=== PATIENT | female | born 1995 | race Native Hawaiian/Other Pacific Islander ===

== ENCOUNTER 2020-11-01 16:16 | Emergency (ER) | payer OTHER ==
[2020-11-01 16:22] VITALS: TEMP 98.5
[2020-11-01] MEDS ORDERED: methylPREDNISolone SOD SUCCI 125 MG/2 ML VIAL IV STA (16:34)
[2020-11-01] MEDS ORDERED: IPRATROPIUM-ALBUTEROL 3 ML NEB INHALATION STA (16:35)
--- NOTE | 2020-11-01 17:16 | XR ---
EXAMINATION TYPE: XR chest 2V DATE OF EXAM: 11/01/2020 COMPARISON: NONE HISTORY: Shortness of breath. TECHNIQUE: Frontal and lateral views of the chest are obtained. FINDINGS: There is no focal air space opacity, pleural effusion, or pneumothorax seen. The cardiac silhouette size is within normal limits. The osseous structures are intact. IMPRESSION: No acute cardiopulmonary process.
[2020-11-01 17:18] VITALS: PULSE 98
--- NOTE | 2020-11-01 17:47 | ED ---
General Adult HPI - General Chief complaint: Shortness of Breath Stated complaint: MIKI Time Seen by Provider: 11/01/20 16:30 Source: patient, RN notes reviewed Mode of arrival: wheelchair Limitations: no limitations - History of Present Illness Initial comments: 25-year-old female presents emergency from chief shortness breath. Patient states over the last few days her asthma has been bothering her. She's been using her inhalers with minimal relief. Patient states she does have an updraft machine at home. She is not seeing a center rep recently. No fevers or chills. Patient states she believes is related to her new job she states that she has been having a lot of nasal congestion, irritation from this. Patient states she is exposed to chemicals. Patient denies any difficulty swallowing difficulty ambulate in. Patient offers no complaints. - Related Data Home Medications Medication Instructions Recorded Confirmed 78/Iron/Folate 1/Dha 1 each PO DAILY 08/09/16 08/09/16 [Prenate Dha Softgel] Previous Rx's Medication Instructions Recorded Albuterol Inhaler (Mhu) [Ventolin 2 puff INHALATION Q4HR PRN #1 12/09/15 Hfa Inhaler (Mhu)] inhaler Acetaminophen-Codeine 300-30mg 2 tab PO Q6H PRN #30 tablet 08/13/16 [Tylenol #3] Ipratropium-Albuterol Nebulize 3 ml INHALATION QID #2 box 11/01/20 [Duoneb 0.5 mg-3 mg/3 ml Soln] predniSONE 50 mg PO DAILY #5 tab 11/01/20 Allergies Allergy/AdvReac Type Severity Reaction Status Date / Time No Known Allergies Allergy Verified 11/01/20 16:22 Review of Systems ROS Statement: Those systems with pertinent positive or pertinent negative responses have been documented in the HPI. ROS Other: All systems not noted in ROS Statement are negative. Past Medical History Past Medical History: Asthma History of Any Multi-Drug Resistant Organisms: None Reported Additional Past Surgical History / Comment(s): skull surgery as infant Past Anesthesia/Blood Transfusion Reactions: No Reported Reaction Past Psychological History: No Psychological Hx Reported Smoking Status: Never smoker Past Alcohol Use History: None Reported Past Drug Use History: None Reported - Past Family History Father Family Medical History: Diabetes Mellitus General Exam Limitations: no limitations General appearance: alert, in no apparent distress Head exam: Present: atraumatic, normocephalic, normal inspection Eye exam: Present: normal appearance, PERRL, EOMI. Absent: scleral icterus, conjunctival injection, periorbital swelling ENT exam: Present: normal exam, normal oropharynx, mucous membranes moist Neck exam: Present: normal inspection. Absent: tenderness, meningismus, lymphadenopathy Respiratory exam: Present: respiratory distress (Minimal), wheezes. Absent: normal lung sounds bilaterally, rales, rhonchi, stridor Cardiovascular Exam: Present: normal rhythm, tachycardia, normal heart sounds. Absent: systolic murmur, diastolic murmur, rubs, gallop, clicks Course Vital Signs 11/01/20 11/01/20 11/01/20 16:19 16:58 17:17 Temperature 98.5 F Pulse Rate 112 H 96 98 Respiratory 26 H Rate Blood Pressure 113/61 O2 Sat by Pulse 97 Oximetry - Reevaluation(s) Reevaluation #1: 11/01/20 17:46 Patient updated on results reevaluated after breathing treatment patient's greatly improved states that she does not have current shortness of breath 11/01/20 17:46 Medical Decision Making - Lab Data Lab Results 11/01/20 Range/Units 16:34 Coronavirus (PCR) Not Detected (Not Detectd) Disposition Clinical Impression: Acute asthma exacerbation Disposition: HOME SELF-CARE Condition: Stable Instructions (If sedation given, give patient instructions): Asthma (ED) Additional Instructions: Please return to the Emergency Department if symptoms worsen or any other concerns. Prescriptions: Ipratropium-Albuterol Nebulize [Duoneb 0.5 mg-3 mg/3 ml Soln] 3 ml INHALATION QID #2 box predniSONE 50 mg PO DAILY #5 tab Is patient prescribed a controlled substance at d/c from ED?: No Referrals: None,Stated [Primary Care Provider] - 1-2 days Time of Disposition: 17:47
[2020-11-01 17:51] VITALS: BP 123/79; RESP 18
== END 2020-11-01 17:52 | disposition home or self-care (01) ==
LOC: EC 16:16
DX: J45.901 Unspecified asthma with (acute) exacerbation (principal)
CPT/HCPCS: 94640; 87635; 71046; 99285; 96374; J2930

== ENCOUNTER 2022-03-12 17:22 | Emergency (ER) | payer OTHER ==
[2022-03-12 17:44] VITALS: BP 113/73; PULSE 101; RESP 18; TEMP 99
[2022-03-12] MEDS ORDERED: SODIUM CHLORIDE 0.9% 1,000 ML IV STA (18:10)
[2022-03-12] MEDS ORDERED: KETOROLAC 15 MG/ML 1 ML VIAL IVP STA (18:10)
[2022-03-12] MEDS ORDERED: diphenhydrAMINE 50 MG/ML 1 ML VIAL IVP STA (18:10)
--- NOTE | 2022-03-12 18:24 | ED ---
Abdominal Pain HPI - General Chief Complaint: Abdominal Pain Stated Complaint: Abd Pain Time Seen by Provider: 03/12/22 17:45 Source: patient, RN notes reviewed Mode of arrival: ambulatory Limitations: no limitations - History of Present Illness Initial Comments: This is a 26-year-old female who presents to the emergency department for abdominal pain that has been present for 2 days. She describes this as being in the bilateral lower quadrants and pelvis. The RLQ and left lower pelvis are the most painful areas. States that the pain fluctuates in intensity. She has had intermittent nausea but no vomiting. She is scheduled to start her period in 2 weeks, and is unsure if this may be related to menstrual cramping. However, she has never had problems with cramping in relation to her menstrual cycles before. States that this pain is new and unlike anything she has experienced prior. Denies any vaginal discharge or new sexual partners. Denies any fevers, chills, sore throat, cough, dyspnea, chest pain, palpitations, vomiting, diarrhea, back pain, or headaches. MD Complaint: abdominal pain Onset/Timin -: days(s) Location: RLQ, suprapubic - Related Data Home Medications Medication Instructions Recorded Confirmed 78/Iron/Folate 1/Dha 1 each PO DAILY 08/09/16 08/09/16 [Prenate Dha Softgel] Previous Rx's Medication Instructions Recorded Albuterol Inhaler (Mhu) [Ventolin 2 puff INHALATION Q4HR PRN #1 12/09/15 Hfa Inhaler (Mhu)] inhaler Acetaminophen-Codeine 300-30mg 2 tab PO Q6H PRN #30 tablet 08/13/16 [Tylenol #3] Ipratropium-Albuterol Nebulize 3 ml INHALATION Q4HR #2 box 11/01/20 [Duoneb 0.5 mg-3 mg/3 ml Soln] Ipratropium-Albuterol Nebulize 3 ml INHALATION QID #2 box 11/01/20 [Duoneb 0.5 mg-3 mg/3 ml Soln] predniSONE 50 mg PO DAILY #5 tab 11/01/20 predniSONE 50 mg PO DAILY #5 tab 11/01/20 Diclofenac Sodium [Voltaren] 75 mg PO BID PRN #20 tab 03/12/22 HYDROcodone/APAP 5-325MG [[place] 1 tab PO Q4HR PRN 3 Days #18 tab 03/12/22 5-325] Ondansetron Odt [Zofran Odt] 4 mg PO Q8HR PRN #15 tab 03/12/22 Allergies Allergy/AdvReac Type Severity Reaction Status Date / Time No Known Allergies Allergy Verified 11/01/20 16:22 Review of Systems ROS Statement: Those systems with pertinent positive or pertinent negative responses have been documented in the HPI. ROS Other: All systems not noted in ROS Statement are negative. Past Medical History Past Medical History: Asthma History of Any Multi-Drug Resistant Organisms: None Reported Additional Past Surgical History / Comment(s): skull surgery as Past Anesthesia/Blood Transfusion Reactions: No Reported Reaction Past Psychological History: No Psychological Hx Reported Smoking Status: Never smoker Past Alcohol Use History: None Reported Past Drug Use History: None Reported - Past Family History Father Family Medical History: Diabetes Mellitus General Exam Limitations: no limitations General appearance: alert, in no apparent distress Head exam: Present: atraumatic, normocephalic, normal inspection Respiratory exam: Present: normal lung sounds bilaterally. Absent: respiratory distress, wheezes, rales, rhonchi, stridor Cardiovascular Exam: Present: regular rate, normal rhythm, normal heart sounds. Absent: systolic murmur, diastolic murmur, rubs, gallop, clicks GI/Abdominal exam: Present: soft, tenderness (RLQ and left suprapubic), normal bowel sounds. Absent: distended, guarding, rebound, rigid Expanded GI/Abdominal exam: Present: tenderness at McBurney's Point (Mild). Absent: psoas sign, obturator sign, Bautista's sign, Rovsing's sign Neurological exam: Present: alert, oriented X3, CN II-XII intact Psychiatric exam: Present: normal affect, normal mood Skin exam: Present: warm, dry, intact, normal color. Absent: rash Course Vital Signs 03/12/22 17:41 Temperature 99.0 F Pulse Rate 101 H Respiratory 18 Rate Blood Pressure 113/73 O2 Sat by Pulse 99 Oximetry Medical Decision Making - Medical Decision Making This is a 26 year old female who presents to the emergency department for abdominal and pelvic pain. Lab work and UA were nonactionable. Patient noted to have a temperature of 99 degrees F on examination, this was rechecked approximately 1.5 hours later and had further elevated to a temperature of 99.4 degrees F. Given the acute abdominal pain with nausea and elevated temperature, CT of the abd/pelvis was obtained. She was given Toradol, Benadryl, and IV fluids for symptoms. CT of the abdomen and pelvis did not reveal any abnormalities and the Toradol and Benadryl did not improve her symptoms. 2mg of morphine provided and ESR/CRP ordered. We discussed that this may be related to mittelschmerz pain, or could be related to an ovarian process or infection such as pelvic inflammatory disease. She denies any vaginal discharge or bleeding and she has no new sexual partners, all of which would lead to more of a concern for PID. We discussed the possibility of proceeding with an ultrasound for further evaluation of the reproductive system, and the patient opted to proceed with ultrasound, saying she wants to have a further evaluation of her symptoms. Ultrasound revealed no acute abnormalities to explain her symptoms. ESR and CRP were also not elevated. Patient advised that her symptoms are likely related to mittelschmerz pain. Rx for [place], Diclofenac, and Zofran sent to the pharmacy. She is advised to avoid any other antiinflammatories when taking the Diclofenac and to use the [place] at night until she knows how it effects her. Starter packs were provided in the emergency department because the pharmacies were closed at the point of the patient's discharge. Return precautions reviewed in depth, the patient is instructed to return to the emergency department with any new, worsening, or concerning symptoms. Patient verbalized understanding. This case was discussed in detail with the attending ED physician. Presentation, findings, and treatment plan discussed in detail as well. - Lab Data Result diagrams: 03/12/22 18:45 03/12/22 18:45 Lab Results 03/12/22 03/12/22 03/12/22 Range/Units 18:45 18:45 18:45 WBC 10.3 (3.8-10.6) k/uL RBC 4.45 (3.80-5.40) m/uL Hgb 13.8 (11.4-16.0) gm/dL Hct 42.3 (34.0-46.0) % MCV 95.0 (80.0-100.0) fL MCH 31.1 (25.0-35.0) pg MCHC 32.7 (31.0-37.0) g/dL RDW 12.1 (11.5-15.5) % Plt Count 173 (150-450) k/uL MPV 8.3 Neutrophils % 87 % Lymphocytes % 6 % Monocytes % 4 % Eosinophils % 2 % Basophils % 1 % Neutrophils # 8.9 H (1.3-7.7) k/uL Lymphocytes # 0.6 L (1.0-4.8) k/uL Monocytes # 0.4 (0-1.0) k/uL Eosinophils # 0.2 (0-0.7) k/uL Basophils # 0.1 (0-0.2) k/uL Sodium 137 (137-145) mmol/L Potassium 4.0 (3.5-5.1) mmol/L Chloride 104 (98-107) mmol/L Carbon Dioxide 24 (22-30) mmol/L Anion Gap 9 mmol/L BUN 17 (7-17) mg/dL Creatinine 0.68 (0.52-1.04) mg/dL Est GFR (CKD-EPI)AfAm >90 (>60 ml/min/1.73 sqM) Est GFR (CKD-EPI)NonAf >90 (>60 ml/min/1.73 sqM) Glucose 120 H (74-99) mg/dL Calcium 9.0 (8.4-10.2) mg/dL Total Bilirubin 1.0 (0.2-1.3) mg/dL AST 22 (14-36) U/L ALT 22 (4-34) U/L Alkaline Phosphatase 56 (38-126) U/L C-Reactive Protein (<1.0) mg/dL Total Protein 7.7 (6.3-8.2) g/dL Albumin 4.5 (3.5-5.0) g/dL Amylase 98 (30-110) U/L Lipase 79 (23-300) U/L Urine Color Yellow Urine Appearance Clear (Clear) Urine pH 5.5 (5.0-8.0) Ur Specific [place] 1.022 (1.001-1.035) Urine Protein Negative (Negative) Urine Glucose (UA) Negative (Negative) Urine Ketones Negative (Negative) Urine Blood Negative (Negative) Urine Nitrite Negative (Negative) Urine Bilirubin Negative (Negative) Urine Urobilinogen <2.0 (<2.0) mg/dL Ur Leukocyte Esterase Negative (Negative) Urine HCG, Qual (Not Detectd) Coronavirus (PCR) (Not Detectd) Influenza Type A RNA (Not Detectd) Influenza Type B (PCR) (Not Detectd) 03/12/22 03/12/22 03/12/22 Range/Units 18:45 18:45 19:09 WBC (3.8-10.6) k/uL RBC (3.80-5.40) m/uL Hgb (11.4-16.0) gm/dL Hct (34.0-46.0) % MCV (80.0-100.0) fL MCH (25.0-35.0) pg MCHC (31.0-37.0) g/dL RDW (11.5-15.5) % Plt Count (150-450) k/uL MPV Neutrophils % % Lymphocytes % % Monocytes % % Eosinophils % % Basophils % % Neutrophils # (1.3-7.7) k/uL Lymphocytes # (1.0-4.8) k/uL Monocytes # (0-1.0) k/uL Eosinophils # (0-0.7) k/uL Basophils # (0-0.2) k/uL Sodium (137-145) mmol/L Potassium (3.5-5.1) mmol/L Chloride (98-107) mmol/L Carbon Dioxide (22-30) mmol/L Anion Gap mmol/L BUN (7-17) mg/dL Creatinine (0.52-1.04) mg/dL Est GFR (CKD-EPI)AfAm (>60 ml/min/1.73 sqM) Est GFR (CKD-EPI)NonAf (>60 ml/min/1.73 sqM) Glucose (74-99) mg/dL Calcium (8.4-10.2) mg/dL Total Bilirubin (0.2-1.3) mg/dL AST (14-36) U/L ALT (4-34) U/L Alkaline Phosphatase (38-126) U/L C-Reactive Protein 0.8 (<1.0) mg/dL Total Protein (6.3-8.2) g/dL Albumin (3.5-5.0) g/dL Amylase (30-110) U/L Lipase (23-300) U/L Urine Color Urine Appearance (Clear) Urine pH (5.0-8.0) Ur Specific [place] (1.001-1.035) Urine Protein (Negative) Urine Glucose (UA) (Negative) Urine Ketones (Negative) Urine Blood (Negative) Urine Nitrite (Negative) Urine Bilirubin (Negative) Urine Urobilinogen (<2.0) mg/dL Ur Leukocyte Esterase (Negative) Urine HCG, Qual Not Detected (Not Detectd) Coronavirus (PCR) (Not Detectd) Influenza Type A RNA Not Detected (Not Detectd) Influenza Type B (PCR) Not Detected (Not Detectd) 03/12/22 Range/Units 19:09 WBC (3.8-10.6) k/uL RBC (3.80-5.40) m/uL Hgb (11.4-16.0) gm/dL Hct (34.0-46.0) % MCV (80.0-100.0) fL MCH (25.0-35.0) pg MCHC (31.0-37.0) g/dL RDW (11.5-15.5) % Plt Count (150-450) k/uL MPV Neutrophils % % Lymphocytes % % Monocytes % % Eosinophils % % Basophils % % Neutrophils # (1.3-7.7) k/uL Lymphocytes # (1.0-4.8) k/uL Monocytes # (0-1.0) k/uL Eosinophils # (0-0.7) k/uL Basophils # (0-0.2) k/uL Sodium (137-145) mmol/L Potassium (3.5-5.1) mmol/L Chloride (98-107) mmol/L Carbon Dioxide (22-30) mmol/L Anion Gap mmol/L BUN (7-17) mg/dL Creatinine (0.52-1.04) mg/dL Est GFR (CKD-EPI)AfAm (>60 ml/min/1.73 sqM) Est GFR (CKD-EPI)NonAf (>60 ml/min/1.73 sqM) Glucose (74-99) mg/dL Calcium (8.4-10.2) mg/dL Total Bilirubin (0.2-1.3) mg/dL AST (14-36) U/L ALT (4-34) U/L Alkaline Phosphatase (38-126) U/L C-Reactive Protein (<1.0) mg/dL Total Protein (6.3-8.2) g/dL Albumin (3.5-5.0) g/dL Amylase (30-110) U/L Lipase (23-300) U/L Urine Color Urine Appearance (Clear) Urine pH (5.0-8.0) Ur Specific [place] (1.001-1.035) Urine Protein (Negative) Urine Glucose (UA) (Negative) Urine Ketones (Negative) Urine Blood (Negative) Urine Nitrite (Negative) Urine Bilirubin (Negative) Urine Urobilinogen (<2.0) mg/dL Ur Leukocyte Esterase (Negative) Urine HCG, Qual (Not Detectd) Coronavirus (PCR) Not Detected (Not Detectd) Influenza Type A RNA (Not Detectd) Influenza Type B (PCR) (Not Detectd) - Radiology Data Radiology results: report reviewed, image reviewed Disposition Clinical Impression: Lana Disposition: HOME SELF-CARE Instructions (If sedation given, give patient instructions): Lana (ED), Acute Abdominal Pain (ED) Additional Instructions: Return to the emergency department with any new, worsening, or concerning symptoms. Do not take the Diclofenac witih any other antiinflammatories. Take the [place] at night until you know how it effects you. Take the Zofran as needed for nausea. Apply heat to the abdomen. Follow up with your primary care provider in 1-2 days. Prescriptions: HYDROcodone/APAP 5-325MG [[place] 5-325] 1 tab PO Q4HR PRN 3 Days #18 tab PRN Reason: Pain Diclofenac Sodium [Voltaren] 75 mg PO BID PRN #20 tab PRN Reason: Pain Ondansetron Odt [Zofran Odt] 4 mg PO Q8HR PRN #15 tab PRN Reason: Nausea And Vomiting Is patient prescribed a controlled substance at d/c from ED?: Yes When asked, does pt state using other controlled substances?: No If prescribed controlled substance>3 days was MAPS reviewed?: Prescribed <3 Days Referrals: None,Stated [Primary Care Provider] - 1-2 days
[2022-03-12 18:52] LABS: Appearance,Urine Clear (Clear); Basophils # (A) 0.1 k/uL (0-0.2); Basophils % (A) 1 %; Bilirubin,Urine Negative (Negative); Blood,Urine Negative (Negative); Color,Urine Yellow; Eosinophils # (A) 0.2 k/uL (0-0.7); Eosinophils % (A) 2 %; Glucose,Urine (UA) Negative (Negative); HCT 42.3 % (34.0-46.0); HGB 13.8 gm/dL (11.4-16.0); Ketones,Urine Negative (Negative); Leukocyte Esterase,Urine Negative (Negative); Lymphocytes # (A) 0.6 k/uL (1.0-4.8); Lymphocytes % (A) 6 %; MCH 31.1 pg (25.0-35.0); MCHC 32.7 g/dL (31.0-37.0); Mean Platelet Volume 8.3; Monocytes # (A) 0.4 k/uL (0-1.0); Monocytes % (A) 4 %; Neutrophils # (A) 8.9 k/uL (1.3-7.7); Neutrophils % (A) 87 %; Nitrite,Urine Negative (Negative); PH, Urine 5.5 (5.0-8.0); Platelet Count 173 k/uL (150-450); Protein,Urine Negative (Negative); RBC 4.45 m/uL (3.80-5.40); RDW 12.1 % (11.5-15.5); Specific Gravity,Urine 1.022 (1.001-1.035); Urobilinogen,Urine <2.0 mg/dL (<2.0); WBC 10.3 k/uL (3.8-10.6)
[2022-03-12 19:03] LABS: ALT 22 U/L (4-34); AST 22 U/L (14-36); African American GFR (CKD) >90 (>60 ml/min/1.73 sqM); Albumin 4.5 g/dL (3.5-5.0); Alkaline Phosphatase 56 U/L (38-126); Amylase 98 U/L (30-110); Anion Gap 9 mmol/L; Blood Urea Nitrogen 17 mg/dL (7-17); Carbon Dioxide 24 mmol/L (22-30); Chloride 104 mmol/L (98-107); Glucose 120 mg/dL (74-99); Lipase 79 U/L (23-300); Non-African American GFR(CKD) >90 (>60 ml/min/1.73 sqM); Sodium 137 mmol/L (137-145); Total Protein 7.7 g/dL (6.3-8.2)
--- NOTE | 2022-03-12 19:44 | CT ---
EXAMINATION TYPE: CT abdomen pelvis w con DATE OF EXAM: 03/12/2022 COMPARISON: None HISTORY: RLQ pain, fever, nausea CT DLP: 1176.9 mGycm Automated exposure control for dose reduction was used. CONTRAST: Performed with IV Contrast, patient injected with 100 mL of Isovue 300. Images obtained from the diaphragm to the floor the pelvis with IV contrast. Lung bases are clear. No pleural effusion. Heart size is normal. No pericardial effusion. Liver splee n and stomach gallbladder appear normal. There is no pancreatic mass. There is no adrenal mass. Kidneys have normal size. There is no hydronephrosis. Ureters are not dilat ed. There is no retroperitoneal adenopathy. The bladder distends smoothly. There is no inguinal hernia. Uterus is anteverted. No pelvic mass. No free fluid in the pelvis. Delay ed images show normal renal excretion. There is no mesenteric edema. No ascites or free air. No bowel obstruction. Appendix is posterior and appears normal. The lumbar vertebrae have normal alignment. Posterior elements are intact. No compression fracture. B erendira pelvis is intact. The hip joints are intact. IMPRESSION: Negative CT scan of the abdomen and pelvis. Normal appendix.
[2022-03-12] MEDS ORDERED: MORPHINE SULFATE 2 MG/ML SYRINGE IVP STA (20:24)
--- NOTE | 2022-03-12 21:06 | US ---
EXAMINATION TYPE: US transvaginal DATE OF EXAM: 03/12/2022 COMPARISON: Same day CT CLINICAL HISTORY: pelvic pain. Pt states generalized pain TECHNIQUE: Transvaginal (TV). Transvaginal sonographic images of the pelvis were acquired. Date of LMP: 02/09/2022 EXAM MEASUREMENTS: Uterus: 10.0 x 4.1 x 5.1 cm Endometrial Stripe: 0.9 cm Right Ovary: 3.1 x 2.6 x 3.4 cm Left Ovary: 3.1 x 2.0 x 2.9 cm 1. Uterus: Anteverted Heterogeneous, Nabothian cyst in cervix 2. Endometrium: wnl 3. Right Ovary: wnl 4. Left Ovary: wnl Spectral, color and waveform doppler imaging shows good arterial and venous flow within the ovaries ; there is no evidence for ovarian torsion. 5. Bilateral Adnexa: wnl 6. Posterior cul-de-sac: Scant amount of free fluid IMPRESSION: Tiny amount of free fluid is likely physiologic. No adnexal mass. Normal uterus. No sign of ovarian torsion.
[2022-03-12] MEDS ORDERED: IBUPROFEN 600 MG STARTER PACK 4 TAB BTL PO STA (21:52)
[2022-03-12] MEDS ORDERED: ACET/COD 300 MG/30 MG STARTER PACK 6 TAB BTL PO STA (21:52)
[2022-03-12] MEDS ORDERED: ONDANSETRON 4 MG ODT STARTER PACK 2 TAB BTL PO STA (21:52)
== END 2022-03-12 22:26 | disposition home or self-care (01) ==
LOC: EC 17:22
DX: N94.0 Mittelschmerz (principal); J45.909 Unspecified asthma, uncomplicated; Z20.822 Contact with and (suspected) exposure to COVID-19
CPT/HCPCS: 36415; 80053; 85652; 82150; 83690; 85025; 86140; 81003; 81025; 87502; 87635; 93975; 76830; 74177; 99284; 96374; 96375; 96361; J1200; J2270; J1885; S0119; Q9967

== ENCOUNTER 2022-05-02 18:54 | Emergency (ER) | payer OTHER ==
[2022-05-02 19:55] VITALS: TEMP 98.3
[2022-05-02 20:26] LABS: Appearance,Urine Cloudy (Clear); Bacteria,Urine Rare /hpf; Bilirubin,Urine Negative (Negative); Blood,Urine Negative (Negative); Color,Urine Yellow; Glucose,Urine (UA) Negative (Negative); Ketones,Urine Negative (Negative); Leukocyte Esterase,Urine Small (Negative); Mucus,Urine Few /hpf; Nitrite,Urine Negative (Negative); PH, Urine 5.5 (5.0-8.0); Protein,Urine Trace (Negative); RBC,Urine 1 /hpf (0-5); Squamous Epithelial Cell,Urine 10 /hpf (0-4); Urobilinogen,Urine <2.0 mg/dL (<2.0); WBC,Urine 3 /hpf (0-5)
[2022-05-02] MEDS ORDERED: SODIUM CHLORIDE 0.9% 1,000 ML IV STA (20:33)
--- NOTE | 2022-05-02 20:55 | ED ---
Abdominal Pain HPI - General Chief Complaint: Abdominal Pain Stated Complaint: abd pain Time Seen by Provider: 05/02/22 20:26 Source: patient, RN notes reviewed Mode of arrival: ambulatory Limitations: no limitations - History of Present Illness Initial Comments: This is a 27-year-old female who presents to the emergency department for abdominal pain. States that the abdominal pain has been ongoing issue for several months, however it has gotten worse over the last several days. Also has associated back pain. She is but is unsure how far along she is. She does have her first obstetrics appointment next month with Dr. Craig. Denies any nausea or vomiting. Denies any fevers, chills, sore throat, cough, dyspnea, chest pain, palpitations, nausea, vomiting, diarrhea, or headaches. MD Complaint: abdominal pain Onset/Timin -: week(s) Associated Symptoms: other (back pain) - Related Data Home Medications Medication Instructions Recorded Confirmed 78/Iron/Folate 1/Dha 1 each PO DAILY 08/09/16 08/09/16 [Prenate Dha Softgel] Previous Rx's Medication Instructions Recorded Albuterol Inhaler [Ventolin Hfa 2 puff INHALATION Q4HR PRN #1 12/09/15 Inhaler] inhaler Acetaminophen-Codeine 300-30mg 2 tab PO Q6H PRN #30 tablet 08/13/16 [Tylenol #3] Ipratropium-Albuterol Nebulize 3 ml INHALATION Q4HR #2 box 11/01/20 [Duoneb 0.5 mg-3 mg/3 ml Soln] Ipratropium-Albuterol Nebulize 3 ml INHALATION QID #2 box 11/01/20 [Duoneb 0.5 mg-3 mg/3 ml Soln] predniSONE 50 mg PO DAILY #5 tab 11/01/20 predniSONE 50 mg PO DAILY #5 tab 11/01/20 Diclofenac Sodium [Voltaren] 75 mg PO BID PRN #20 tab 03/13/22 HYDROcodone/APAP 5-325MG [Eva 1 tab PO Q4HR PRN 3 Days #18 tab 03/13/22 5-325] Ondansetron Odt [Zofran Odt] 4 mg PO Q8HR PRN #15 tab 03/13/22 Cephalexin [Keflex] 500 mg PO Q8HR 3 Days #9 cap 07/18/22 Allergies Allergy/AdvReac Type Severity Reaction Status Date / Time No Known Allergies Allergy Verified 05/02/22 19:55 Review of Systems ROS Statement: Those systems with pertinent positive or pertinent negative responses have been documented in the HPI. ROS Other: All systems not noted in ROS Statement are negative. Past Medical History Past Medical History: Asthma History of Any Multi-Drug Resistant Organisms: None Reported Additional Past Surgical History / Comment(s): skull surgery as infant Past Anesthesia/Blood Transfusion Reactions: No Reported Reaction Past Psychological History: No Psychological Hx Reported Smoking Status: Never smoker Past Alcohol Use History: None Reported Past Drug Use History: None Reported - Past Family History Father Family Medical History: Diabetes Mellitus General Exam Limitations: no limitations General appearance: alert, in no apparent distress Head exam: Present: atraumatic, normocephalic, normal inspection Respiratory exam: Present: normal lung sounds bilaterally. Absent: respiratory distress, wheezes, rales, rhonchi, stridor Cardiovascular Exam: Present: regular rate, normal rhythm, normal heart sounds. Absent: systolic murmur, diastolic murmur, rubs, gallop, clicks GI/Abdominal exam: Present: normal bowel sounds Neurological exam: Present: alert, oriented X3, CN II-XII intact Psychiatric exam: Present: normal affect, normal mood Skin exam: Present: warm, dry, intact, normal color. Absent: rash Course Vital Signs 05/02/22 05/02/22 19:51 23:08 Temperature 98.3 F Pulse Rate 74 80 Respiratory 22 18 Rate Blood Pressure 121/69 128/78 O2 Sat by Pulse 100 98 Oximetry Medical Decision Making - Medical Decision Making This is a 27-year-old female who presents to the emergency department for abdominal pain and lower back pain. Lab work was nonactionable. Ultrasound reveals a single live intrauterine at approximately 6 weeks. Urinalysis reveals an asymptomatic bacteriuria. Rx for Keflex provided. Discussed with the patient that we are unable to determine a cause for her abdominal pain at this time. Because this has been going on for many months, long before the , advised she follow up with gastroenterology for further evaluation. Follow-up for Dr. Sheriff listed on her discharge form. Advise she only take Tylenol for pain. She will follow up with obstetrics as scheduled next month. Return precautions reviewed in depth, the patient is instructed to return to the emergency department with any new, worsening, or concerning symptoms. Patient verbalized understanding. This case was discussed in detail with the attending ED physician. Presentation, findings, and treatment plan discussed in detail as well. - Lab Data Result diagrams: 05/02/22 21:20 05/02/22 21:20 Lab Results 05/02/22 05/02/22 05/02/22 Range/Units 20:05 20:05 21:20 WBC 6.3 (3.8-10.6) k/uL RBC 3.80 (3.80-5.40) m/uL Hgb 12.6 (11.4-16.0) gm/dL Hct 36.0 (34.0-46.0) % MCV 95.0 (80.0-100.0) fL MCH 33.1 (25.0-35.0) pg MCHC 34.9 (31.0-37.0) g/dL RDW 13.3 (11.5-15.5) % Plt Count 198 (150-450) k/uL MPV 8.1 Neutrophils % 56 % Lymphocytes % 29 % Monocytes % 6 % Eosinophils % 5 % Basophils % 1 % Neutrophils # 3.5 (1.3-7.7) k/uL Lymphocytes # 1.8 (1.0-4.8) k/uL Monocytes # 0.4 (0-1.0) k/uL Eosinophils # 0.3 (0-0.7) k/uL Basophils # 0.1 (0-0.2) k/uL Sodium (137-145) mmol/L Potassium (3.5-5.1) mmol/L Chloride (98-107) mmol/L Carbon Dioxide (22-30) mmol/L Anion Gap mmol/L BUN (7-17) mg/dL Creatinine (0.52-1.04) mg/dL Est GFR (CKD-EPI)AfAm (>60 ml/min/1.73 sqM) Est GFR (CKD-EPI)NonAf (>60 ml/min/1.73 sqM) Glucose (74-99) mg/dL Calcium (8.4-10.2) mg/dL Total Bilirubin (0.2-1.3) mg/dL AST (14-36) U/L ALT (4-34) U/L Alkaline Phosphatase (38-126) U/L Total Protein (6.3-8.2) g/dL Albumin (3.5-5.0) g/dL Amylase (30-110) U/L Lipase (23-300) U/L HCG, Quant mIU/mL Urine Color Yellow Urine Appearance Cloudy H (Clear) Urine pH 5.5 (5.0-8.0) Ur Specific [place] 1.030 (1.001-1.035) Urine Protein Trace H (Negative) Urine Glucose (UA) Negative (Negative) Urine Ketones Negative (Negative) Urine Blood Negative (Negative) Urine Nitrite Negative (Negative) Urine Bilirubin Negative (Negative) Urine Urobilinogen <2.0 (<2.0) mg/dL Ur Leukocyte Esterase Small H (Negative) Urine RBC 1 (0-5) /hpf Urine WBC 3 (0-5) /hpf Ur Squamous Epith Cells 10 H (0-4) /hpf Urine Bacteria Rare H (None) /hpf Urine Mucus Few H (None) /hpf Urine HCG, Qual Detected (Not Detectd) 05/02/22 Range/Units 21:20 WBC (3.8-10.6) k/uL RBC (3.80-5.40) m/uL Hgb (11.4-16.0) gm/dL Hct (34.0-46.0) % MCV (80.0-100.0) fL MCH (25.0-35.0) pg MCHC (31.0-37.0) g/dL RDW (11.5-15.5) % Plt Count (150-450) k/uL MPV Neutrophils % % Lymphocytes % % Monocytes % % Eosinophils % % Basophils % % Neutrophils # (1.3-7.7) k/uL Lymphocytes # (1.0-4.8) k/uL Monocytes # (0-1.0) k/uL Eosinophils # (0-0.7) k/uL Basophils # (0-0.2) k/uL Sodium 135 L (137-145) mmol/L Potassium 3.7 (3.5-5.1) mmol/L Chloride 104 (98-107) mmol/L Carbon Dioxide 24 (22-30) mmol/L Anion Gap 7 mmol/L BUN 15 (7-17) mg/dL Creatinine 0.59 (0.52-1.04) mg/dL Est GFR (CKD-EPI)AfAm >90 (>60 ml/min/1.73 sqM) Est GFR (CKD-EPI)NonAf >90 (>60 ml/min/1.73 sqM) Glucose 97 (74-99) mg/dL Calcium 9.1 (8.4-10.2) mg/dL Total Bilirubin 0.4 (0.2-1.3) mg/dL AST 18 (14-36) U/L ALT 13 (4-34) U/L Alkaline Phosphatase 54 (38-126) U/L Total Protein 6.6 (6.3-8.2) g/dL Albumin 3.9 (3.5-5.0) g/dL Amylase 69 (30-110) U/L Lipase 94 (23-300) U/L HCG, Quant 48027.7 mIU/mL Urine Color Urine Appearance (Clear) Urine pH (5.0-8.0) Ur Specific [place] (1.001-1.035) Urine Protein (Negative) Urine Glucose (UA) (Negative) Urine Ketones (Negative) Urine Blood (Negative) Urine Nitrite (Negative) Urine Bilirubin (Negative) Urine Urobilinogen (<2.0) mg/dL Ur Leukocyte Esterase (Negative) Urine RBC (0-5) /hpf Urine WBC (0-5) /hpf Ur Squamous Epith Cells (0-4) /hpf Urine Bacteria (None) /hpf Urine Mucus (None) /hpf Urine HCG, Qual (Not Detectd) - Radiology Data Radiology results: report reviewed, image reviewed Disposition Clinical Impression: Lower abdominal pain Disposition: HOME SELF-CARE Instructions (If sedation given, give patient instructions): Abdominal Pain in (ED) Additional Instructions: Return to the emergency department with any new, worsening, or concerning symptoms. Take the Keflex as prescribed for 3 days. Take Tylenol for the pain and follow-up with obstetrics as scheduled. Contact Dr. Sheriff's office for further evaluation of abdominal pain. Prescriptions: Cephalexin [Keflex] 500 mg PO Q8HR 3 Days #9 cap Is patient prescribed a controlled substance at d/c from ED?: No Referrals: None,Stated [Primary Care Provider] - 1-2 days Lottie Sheriff MD [STAFF PHYSICIAN] - 1-2 days
[2022-05-02 21:33] LABS: Basophils # (A) 0.1 k/uL (0-0.2); Basophils % (A) 1 %; Eosinophils # (A) 0.3 k/uL (0-0.7); Eosinophils % (A) 5 %; HGB 12.6 gm/dL (11.4-16.0); Lymphocytes # (A) 1.8 k/uL (1.0-4.8); Lymphocytes % (A) 29 %; MCH 33.1 pg (25.0-35.0); MCHC 34.9 g/dL (31.0-37.0); Mean Platelet Volume 8.1; Monocytes # (A) 0.4 k/uL (0-1.0); Monocytes % (A) 6 %; Neutrophils # (A) 3.5 k/uL (1.3-7.7); Neutrophils % (A) 56 %; Platelet Count 198 k/uL (150-450); RDW 13.3 % (11.5-15.5); WBC 6.3 k/uL (3.8-10.6)
[2022-05-02 22:02] LABS: ALT 13 U/L (4-34); AST 18 U/L (14-36); African American GFR (CKD) >90 (>60 ml/min/1.73 sqM); Albumin 3.9 g/dL (3.5-5.0); Alkaline Phosphatase 54 U/L (38-126); Amylase 69 U/L (30-110); Anion Gap 7 mmol/L; Blood Urea Nitrogen 15 mg/dL (7-17); Calcium 9.1 mg/dL (8.4-10.2); Carbon Dioxide 24 mmol/L (22-30); Chloride 104 mmol/L (98-107); Glucose 97 mg/dL (74-99); Lipase 94 U/L (23-300); Non-African American GFR(CKD) >90 (>60 ml/min/1.73 sqM); Potassium 3.7 mmol/L (3.5-5.1); Sodium 135 mmol/L (137-145); Total Bilirubin 0.4 mg/dL (0.2-1.3); Total Protein 6.6 g/dL (6.3-8.2)
--- NOTE | 2022-05-02 22:13 | US ---
EXAMINATION TYPE: Transabdominal DATE OF EXAM: 05/02/2022 10:00 PM COMPARISON: NONE CLINICAL HISTORY: Lower abdominal pain in . Pelvic pain x 3 days EXAM PERFORMED: Transabdominal (TA) EXAM MEASUREMENTS: GESTATIONAL AGE / DATING Physician Established: Not yet established Dates by LMP: (6 weeks/2 days) EDC: 12/24/2022 Dates by First Scan: No previous this is first scan Dates by Current Scan for: ( 6 weeks/3 days) EDC: 12/23/2022 MATERNAL ANATOMY Uterus: 9.8 x 4.9 x 7.4cm Right Ovary: 3.3 x 1.8 x 2.1cm Left Ovary: 3.4 x 2.1 x 2.4cm Post CDS / Adnexa: wnl Presence of free fluid: no Presence of corpus luteal cyst: not seen Presence of subchorionic bleed: no GESTATION / SURVEY CRL: 0.6cm (6 weeks/3 days) Yolk Sac (normal less than 6mm): not seen Heart Rate: 115 bpm Rhythm: Normal IUP: Viable IUP Date of LMP: 03/19/2022 Beta HcG (if available): Not available at time of exam IMPRESSION: The ultrasound gestational age of 6 weeks and 3 days. No complicating process seen.
[2022-05-02 22:51] LABS: HCG,Quantitative Serum 32729.7 mIU/mL
[2022-05-02 23:09] VITALS: BP 128/78; PULSE 80; RESP 18
== END 2022-05-02 23:47 | disposition home or self-care (01) ==
LOC: EC 18:54
DX: R10.30 Lower abdominal pain, unspecified (principal)
CPT/HCPCS: 36415; 76801; 80053; 81001; 81025; 82150; 83690; 84702; 85025; 96360; 96361; 99284

== ENCOUNTER → 2022-11-01 | Outpatient (CLI) | payer OTHER ==
[2022-11-01 15:51] LABS: Basophils % (A) 0 %; Eosinophils # (A) 0.1 k/uL (0-0.7); Eosinophils % (A) 3 %; HCT 42.4 % (34.0-46.0); HGB 14.3 gm/dL (11.4-16.0); Lymphocytes # (A) 0.9 k/uL (1.0-4.8); Lymphocytes % (A) 18 %; MCH 31.3 pg (25.0-35.0); MCHC 33.7 g/dL (31.0-37.0); MCV 92.9 fL (80.0-100.0); Mean Platelet Volume 8.1; Monocytes # (A) 0.4 k/uL (0-1.0); Monocytes % (A) 8 %; Neutrophils # (A) 3.5 k/uL (1.3-7.7); Neutrophils % (A) 68 %; Platelet Count 194 k/uL (150-450); RBC 4.56 m/uL (3.80-5.40); RDW 12.9 % (11.5-15.5); WBC 5.1 k/uL (3.8-10.6)
[2022-11-01 16:45] LABS: Total Eosinophil Count 132 #EOS/uL (150-300)
[2022-11-03 07:21] LABS: Aspergillus fumagatus IgE 0.44 kU/L; Cat Epith & Dander IgE >100.00 kU/L; Cladosporian herbarum IgE <0.10 kU/L; Cockroach IgE <0.10 kU/L; Elm IgE 0.17 kU/L; Maple (Box Elder) IgE 1.19 kU/L; Oak IgE 0.44 kU/L; Red Top (Bentgrass) IgE <0.10 kU/L
== END | disposition home or self-care (01) ==
LOC: LABWHC1 13:47
PROVIDERS: ATTEND Internal Medicine
DX: J45.909 Unspecified asthma, uncomplicated (principal)
CPT/HCPCS: 36415; 82785; 85008; 85025; 86003

== ENCOUNTER 2023-08-18 10:52 | Emergency (ER) | payer OTHER ==
[2023-08-18 11:04] VITALS: TEMP 99
[2023-08-18 11:35] LABS: Basophils # (A) 0.1 k/uL (0-0.2); Basophils % (A) 1 %; Eosinophils # (A) 0.1 k/uL (0-0.7); Eosinophils % (A) 2 %; HCT 39.5 % (34.0-46.0); HGB 13.7 gm/dL (11.4-16.0); Lymphocytes # (A) 1.8 k/uL (1.0-4.8); Lymphocytes % (A) 26 %; MCH 32.3 pg (25.0-35.0); MCHC 34.8 g/dL (31.0-37.0); MCV 92.9 fL (80.0-100.0); Monocytes # (A) 0.3 k/uL (0-1.0); Monocytes % (A) 4 %; Neutrophils # (A) 4.5 k/uL (1.3-7.7); Neutrophils % (A) 66 %; Platelet Count 235 k/uL (150-450); RBC 4.25 m/uL (3.80-5.40); RDW 12.2 % (11.5-15.5); WBC 6.9 k/uL (3.8-10.6)
[2023-08-18 12:01] LABS: ALT 26 U/L (4-34); AST 24 U/L (14-36); African American GFR (CKD) >90 (>60 ml/min/1.73 sqM); Albumin 4.3 g/dL (3.5-5.0); Alkaline Phosphatase 65 U/L (38-126); Anion Gap 11 mmol/L; Blood Urea Nitrogen 17 mg/dL (7-17); Calcium 9.7 mg/dL (8.4-10.2); Carbon Dioxide 25 mmol/L (22-30); Chloride 105 mmol/L (98-107); Glucose 110 mg/dL (74-99); Non-African American GFR(CKD) >90 (>60 ml/min/1.73 sqM); Potassium 3.9 mmol/L (3.5-5.1); Sodium 141 mmol/L (137-145); Total Bilirubin 0.4 mg/dL (0.2-1.3); Total Protein 7.4 g/dL (6.3-8.2)
[2023-08-18 12:37] VITALS: RESP 18
[2023-08-18 12:38] LABS: Appearance,Urine Cloudy (Clear); Bacteria,Urine Rare /hpf; Bilirubin,Urine Negative (Negative); Blood,Urine Large (Negative); Color,Urine Light Yellow; Glucose,Urine (UA) Negative (Negative); Ketones,Urine Negative (Negative); Leukocyte Esterase,Urine Small (Negative); Mucus,Urine Rare /hpf; Nitrite,Urine Negative (Negative); Protein,Urine Negative (Negative); RBC,Urine 2 /hpf (0-5); Specific Gravity,Urine 1.023 (1.001-1.035); Squamous Epithelial Cell,Urine 20 /hpf (0-4); Urobilinogen,Urine <2.0 mg/dL (<2.0); WBC,Urine 9 /hpf (0-5)
--- NOTE | 2023-08-18 12:57 | ED ---
Female Urogenital HPI - General Chief complaint: Vaginal Bleeding Stated complaint: vaginal bleeding 10 wks preg Time Seen by Provider: 08/18/23 11:07 Source: patient, RN notes reviewed Mode of arrival: ambulatory Limitations: no limitations - History of Present Illness Initial comments: This is a 28-year-old female who presents to the emergency department for vaginal bleeding in . Patient is approximately 10-11 weeks and . Reports ongoing vaginal bleeding for about a month, ever since she was evaluated here on 07/18. States that she is now passing clots and having increasing pain. She is still not yet established with an [employer]. Denies any nausea or vomiting. She does take Tylenol as needed for symptomatic management. MD Complaint: vaginal bleeding - Related Data Home Medications Medication Instructions Recorded Confirmed 78/Iron/Folate 1/Dha 1 each PO DAILY 08/09/16 08/09/16 [Prenate Dha Softgel] Previous Rx's Medication Instructions Recorded Albuterol Inhaler [Ventolin Hfa 2 puff INHALATION Q4HR PRN #1 12/09/15 Inhaler] inhaler Acetaminophen-Codeine 300-30mg 2 tab PO Q6H PRN #30 tablet 08/13/16 [Tylenol #3] Ipratropium-Albuterol Nebulize 3 ml INHALATION Q4HR #2 box 11/01/20 [Duoneb 0.5 mg-3 mg/3 ml Soln] Ipratropium-Albuterol Nebulize 3 ml INHALATION QID #2 box 11/01/20 [Duoneb 0.5 mg-3 mg/3 ml Soln] predniSONE 50 mg PO DAILY #5 tab 11/01/20 predniSONE 50 mg PO DAILY #5 tab 11/01/20 Diclofenac Sodium [Voltaren] 75 mg PO BID PRN #20 tab 03/13/22 HYDROcodone/APAP 5-325MG [Ham[place] 1 tab PO Q4HR PRN 3 Days #18 tab 03/13/22 5-325] Ondansetron Odt [Zofran Odt] 4 mg PO Q8HR PRN #15 tab 03/13/22 Cephalexin [Keflex] 500 mg PO Q8HR 3 Days #9 cap 05/02/22 Allergies Allergy/AdvReac Type Severity Reaction Status Date / Time No Known Allergies Allergy Verified 11/03/23 11:03 Review of Systems ROS Statement: Those systems with pertinent positive or pertinent negative responses have been documented in the HPI. ROS Other: All systems not noted in ROS Statement are negative. Past Medical History Past Medical History: Asthma History of Any Multi-Drug Resistant Organisms: None Reported Additional Past Surgical History / Comment(s): skull surgery as Past Anesthesia/Blood Transfusion Reactions: No Reported Reaction Past Psychological History: No Psychological Hx Reported Smoking Status: Never smoker Past Alcohol Use History: None Reported Past Drug Use History: None Reported - Past Family History Father Family Medical History: Diabetes Mellitus General Exam Limitations: no limitations General appearance: alert, in no apparent distress Head exam: Present: atraumatic, normocephalic, normal inspection Respiratory exam: Present: normal lung sounds bilaterally. Absent: respiratory distress, wheezes, rales, rhonchi, stridor Cardiovascular Exam: Present: regular rate, normal rhythm, normal heart sounds. Absent: systolic murmur, diastolic murmur, rubs, gallop, clicks Neurological exam: Present: alert, oriented X3, CN II-XII intact Psychiatric exam: Present: normal affect, normal mood Skin exam: Present: warm, dry, intact, normal color. Absent: rash Course Vital Signs 08/18/23 08/18/23 08/18/23 11:01 11:30 12:00 Temperature 99 F Pulse Rate 96 Respiratory 20 18 18 Rate Blood Pressure 131/88 110/70 117/91 O2 Sat by Pulse 97 95 97 Oximetry 08/18/23 13:53 Temperature Pulse Rate 83 Respiratory 18 Rate Blood Pressure 99/73 O2 Sat by Pulse 99 Oximetry Medical Decision Making - Medical Decision Making This is a 28-year-old female who presents to the emergency department for vaginal bleeding in . Was pt. sent in by a medical professional or institution? @ -No Did you speak to anyone other than the patient for history? @ -No Did you review nursing and triage notes? @ -Yes, and I agree, it is accurate with regards to the patient's symptoms. Were old charts reviewed? @ -No Differential Diagnosis? @ -Differential Vaginal Bleeding: Spontaneous , threatened , molar , ectopic , incompetent cervix, placenta previa, uterine rupture, dysfunctional uterine bleeding, hemorrhage, uterine fibroids, malignancy, coagulopathy, PID, cervicitis, adenomyosis, vaginal trauma, this is not meant to be an all- inclusive list. EKG interpreted by me (3pts min.)? @ -Not obtained X-rays interpreted by me (1pt min.)? @ -Not obtained CT interpreted by me (1pt min.)? @ -Not obtained U/S interpreted by me (1pt. min.)? @ -Not interpreted by me What testing was considered but not performed? (CT, X-rays, U/S, labs)? Why? @ -None What meds were considered but not given? Why? @ -None Did you discuss the management of the patient with other professionals? @ -No Did you reconcile home meds? @ -No Was smoking cessation discussed for >3mins.? @ -No Was critical care preformed (if so, how long)? @ -No Were there social determinants of health that impacted care today? How? (H omelessness, low income, unemployed, alcoholism, drug addiction, transportation, low edu. Level, literacy, decrease access to med. care, correction, rehab)? @ -No Was there de-escalation of care discussed even if they declined? (Discuss DNR or withdrawal of care, Hospice)? @ -No What co-morbidities impacted this encounter? (DM, HTN, Smoking, COPD, CAD, Cancer, CVA, Hep., AIDS, mental health diagnosis, sleep apnea, morbid obesity)? @ - Was patient admitted / discharged? @ -Discharged. Beta hCG decreased from 43126.6 on 07/18 to 26 today. No IUP was visualized on US, and US from 07/18 did demonstrate a single live IUP, indicating a miscarriage. This appears to be incomplete at this time. Patient is Rh+, and no RhoGAM is indicated. Lab slip given to have beta hCG repeated, she is advised to take this to the lab to have her hCG level repeated in 48 hours. Recommended Tylenol as needed for pain relief. Undiagnosed new problem with uncertain prognosis? @ -None Drug Therapy requiring intensive monitoring for toxicity (Heparin, Nitro, Insulin, Cardizem)? @ -None Were any procedures done? @ -None Diagnosis/symptom? @ -Incomplete Acute, or Chronic, or Acute on Chronic? @ -Acute Uncomplicated (without systemic symptoms) or Complicated (systemic symptoms)? @ -Uncomplicated Side effects of treatment? @ -None Exacerbation, Progression, or Severe Exacerbation] @ -Not applicable Poses a threat to life or bodily function? @ -Unlikely Return precautions reviewed in depth, the patient is instructed to return to the emergency department with any new, worsening, or concerning symptoms. Patient verbalized understanding. This case was discussed in detail with the attending ED physician, Dr. Olivarez. Presentation, findings, and treatment plan discussed in detail as well. - Lab Data Result diagrams: 08/18/23 11:08/18/23 11: Lab Results 08/18/23 08/18/23 08/18/23 Range/Units 11: 11: 11: WBC 6.9 (3.8-10.6) k/uL RBC 4.25 (3.80-5.40) m/uL Hgb 13.7 (11.4-16.0) gm/dL Hct 39.5 (34.0-46.0) % MCV 92.9 (80.0-100.0) fL MCH 32.3 (25.0-35.0) pg MCHC 34.8 (31.0-37.0) g/dL RDW 12.2 (11.5-15.5) % Plt Count 235 (150-450) k/uL MPV 8.0 Neutrophils % 66 % Lymphocytes % 26 % Monocytes % 4 % Eosinophils % 2 % Basophils % 1 % Neutrophils # 4.5 (1.3-7.7) k/uL Lymphocytes # 1.8 (1.0-4.8) k/uL Monocytes # 0.3 (0-1.0) k/uL Eosinophils # 0.1 (0-0.7) k/uL Basophils # 0.1 (0-0.2) k/uL Sodium 141 (137-145) mmol/L Potassium 3.9 (3.5-5.1) mmol/L Chloride 105 (98-107) mmol/L Carbon Dioxide 25 (22-30) mmol/L Anion Gap 11 mmol/L BUN 17 (7-17) mg/dL Creatinine 0.73 (0.52-1.04) mg/dL Est GFR (CKD-EPI)AfAm >90 (>60 ml/min/1.73 sqM) Est GFR (CKD-EPI)NonAf >90 (>60 ml/min/1.73 sqM) Glucose 110 H (74-99) mg/dL Calcium 9.7 (8.4-10.2) mg/dL Total Bilirubin 0.4 (0.2-1.3) mg/dL AST 24 (14-36) U/L ALT 26 (4-34) U/L Alkaline Phosphatase 65 (38-126) U/L Total Protein 7.4 (6.3-8.2) g/dL Albumin 4.3 (3.5-5.0) g/dL HCG, Quant 26.0 mIU/mL Urine Color Urine Appearance (Clear) Urine pH (5.0-8.0) Ur Specific [place] (1.001-1.035) Urine Protein (Negative) Urine Glucose (UA) (Negative) Urine Ketones (Negative) Urine Blood (Negative) Urine Nitrite (Negative) Urine Bilirubin (Negative) Urine Urobilinogen (<2.0) mg/dL Ur Leukocyte Esterase (Negative) Urine RBC (0-5) /hpf Urine WBC (0-5) /hpf Ur Squamous Epith Cells (0-4) /hpf Urine Bacteria (None) /hpf Urine Mucus (None) /hpf Blood Type O Positive Blood Type Recheck O Pos Bld Type Recheck Status No 08/18/23 Range/Units 11:42 WBC (3.8-10.6) k/uL RBC (3.80-5.40) m/uL Hgb (11.4-16.0) gm/dL Hct (34.0-46.0) % MCV (80.0-100.0) fL MCH (25.0-35.0) pg MCHC (31.0-37.0) g/dL RDW (11.5-15.5) % Plt Count (150-450) k/uL MPV Neutrophils % % Lymphocytes % % Monocytes % % Eosinophils % % Basophils % % Neutrophils # (1.3-7.7) k/uL Lymphocytes # (1.0-4.8) k/uL Monocytes # (0-1.0) k/uL Eosinophils # (0-0.7) k/uL Basophils # (0-0.2) k/uL Sodium (137-145) mmol/L Potassium (3.5-5.1) mmol/L Chloride (98-107) mmol/L Carbon Dioxide (22-30) mmol/L Anion Gap mmol/L BUN (7-17) mg/dL Creatinine (0.52-1.04) mg/dL Est GFR (CKD-EPI)AfAm (>60 ml/min/1.73 sqM) Est GFR (CKD-EPI)NonAf (>60 ml/min/1.73 sqM) Glucose (74-99) mg/dL Calcium (8.4-10.2) mg/dL Total Bilirubin (0.2-1.3) mg/dL AST (14-36) U/L ALT (4-34) U/L Alkaline Phosphatase (38-126) U/L Total Protein (6.3-8.2) g/dL Albumin (3.5-5.0) g/dL HCG, Quant mIU/mL Urine Color Light Yellow Urine Appearance Cloudy H (Clear) Urine pH 5.0 (5.0-8.0) Ur Specific [place] 1.023 (1.001-1.035) Urine Protein Negative (Negative) Urine Glucose (UA) Negative (Negative) Urine Ketones Negative (Negative) Urine Blood Large H (Negative) Urine Nitrite Negative (Negative) Urine Bilirubin Negative (Negative) Urine Urobilinogen <2.0 (<2.0) mg/dL Ur Leukocyte Esterase Small H (Negative) Urine RBC 2 (0-5) /hpf Urine WBC 9 H (0-5) /hpf Ur Squamous Epith Cells 20 H (0-4) /hpf Urine Bacteria Rare H (None) /hpf Urine Mucus Rare H (None) /hpf Blood Type Blood Type Recheck Bld Type Recheck Status - Radiology Data Radiology results: report reviewed, image reviewed Disposition Clinical Impression: Incomplete Disposition: HOME SELF-CARE Instructions (If sedation given, give patient instructions): Miscarriage (ED) Additional Instructions: Return to the emergency department with any new, worsening, or concerning symptoms. Take the lab slip to have your beta hCG repeated on Monday. Continue to take Tylenol as needed for pain relief. Follow up with your primary care provider in 1-2 days. Is patient prescribed a controlled substance at d/c from ED?: No Referrals: Payam Noble MD [Primary Care Provider] - 1-2 days
--- NOTE | 2023-08-18 13:38 | US ---
EXAMINATION TYPE: Transabdominal DATE OF EXAM: 08/18/2023 12:30 PM COMPARISON: US 2022 CLINICAL INDICATION: Female, 28 years old with history of Vaginal bleeding in ; Bleeding x 1 month that has gotten worse recently EXAM PERFORMED: Transabdominal (TA) EXAM MEASUREMENTS: GESTATIONAL AGE / DATING Physician Established: Not yet established Dates by LMP: (12 weeks/4 days) EDC: 02/27/2023 Dates by First Scan: (12 weeks/4 days) EDC: 02/28/2024 Dates by Current Scan for: No IUP seen at this time MATERNAL ANATOMY Uterus: 8.5 x 4.1 x 5.5cm Right Ovary: 3.0 x 1.7 x 2.5cm Left Ovary: 3.2 x 2.1 x 2.5cm Post CDS / Adnexa: wnl Presence of free fluid: no Presence of corpus luteal cyst: no Presence of subchorionic bleed: no GESTATION / SURVEY IUP: No IUP seen at this time Date of LMP: 05/24/2023 Beta HcG (if available): 26.0 IMPRESSION: No intrauterine identified. Differential diagnosis would include a normal too ear ly to detect, missed , although ectopic not entirely excluded. Recommend correlatio n with serial beta hCG and pelvic ultrasound as clinically warranted.
[2023-08-18 14:08] VITALS: BP 99/73; PULSE 83
== END 2023-08-18 13:59 | disposition home or self-care (01) ==
LOC: EC 10:52
DX: O03.4 Incomplete spontaneous abortion without complication (principal)
CPT/HCPCS: 36415; 76801; 80053; 81001; 84702; 85025; 86900; 86901; 99284

== ENCOUNTER → 2025-01-04 | Outpatient (CLI) | payer OTHER ==
--- NOTE | 2025-01-04 10:26 | MR ---
EXAMINATION TYPE: MR brain wo con DATE OF EXAM: 01/04/2025 COMPARISON: NONE HISTORY: Headaches worsening. TECHNIQUE: Multiplanar, multisequence imaging of the brain and brainstem is performed without IV cont rast. FINDINGS: Suboptimal with artifact degradation at level of the mouth. Diffusion weighted images demonstrate no evidence of a recent infarct or other diffusion abnormality. There is no extraaxial fluid collection or significant white matter signal abnormality. The ventricu lar system and cisternal spaces are normal in size and appearance. The brain volume is age appropria te. No suspicious intraparenchymal blood products. Midline structures demonstrate normal morphology. The craniocervical junction appears within normal limits. Normal vascular flow voids are present. Suboptimal evaluation of the paranasal sinuses and gl obes. IMPRESSION: Suboptimal study particularly anterior aspect. No obvious suspicious abnormality is seen. [facility], , 01/04/2025 10:23 AM
== END | disposition home or self-care (01) ==
LOC: RADMRIMAIN 09:25
PROVIDERS: ATTEND Family Medicine
DX: R51.9 Headache, unspecified (principal)
CPT/HCPCS: 70551

== ENCOUNTER 2025-01-30 10:07 | Day surgery (SDC) | payer OTHER ==
[2025-01-30 10:28] VITALS: TEMP 96.9
[2025-01-30] MEDS: ONDANSETRON 4 MG/2 ML VIAL IVP ONE (10:59)
[2025-01-30] MEDS: LACTATED RINGERS 1,000 ML IV SCH (10:59)
[2025-01-30] MEDS: DEXAMETHASONE SOD PHOSPHATE 4 MG/ML 1 ML VIAL IV ONE (10:59)
[2025-01-30] MEDS: IV FLUID CONTINUATION 1,000 ML IV ONE (11:04)
[2025-01-30] MEDS: MIDAZOLAM 2 MG/2 ML VIAL IV ONE (11:09)
[2025-01-30] MEDS: fentaNYL (PF) 50 MCG/ML 2 ML AMP IVP PRN (11:10)
[2025-01-30] MEDS: SCOPOLAMINE 1 MG/72 HR PATCH TRANSDERM STA (11:22)
[2025-01-30] MEDS: HEPARIN SODIUM,PORCINE 5,000 UNIT/ML 1 ML VIAL SQ PRN (11:22)
[2025-01-30] MEDS ORDERED: NEOSTIGMINE 1 MG/ML 10 ML VIAL ONE (11:25)
[2025-01-30] MEDS ORDERED: LIDOCAINE 1% INJ 10MG/ML (20 ML MDV) ONE (11:25)
[2025-01-30] MEDS ORDERED: ROPIVACAINE 5 MG/ML 30 ML VIAL ONE (11:25)
[2025-01-30] MEDS ORDERED: ROCURONIUM 10 MG/ML (5 ML VIAL) IV ONE (11:25)
[2025-01-30] MEDS ORDERED: GLYCOPYRROLATE 0.2 MG/ML 2 ML VIAL ONE (11:25)
[2025-01-30] MEDS ORDERED: SUCCINYLCHOLINE CHLORIDE 200 MG/10 ML VIAL IV ONE (11:25)
[2025-01-30] MEDS ORDERED: SODIUM CHLORIDE 0.9% (PF) 10 ML VIAL ONE (11:25)
[2025-01-30] MEDS ORDERED: fentaNYL (PF) 50 MCG/ML 2 ML AMP ONE (11:25)
[2025-01-30] MEDS ORDERED: DEXAMETHASONE SOD PHOSPHATE 4 MG/ML 1 ML VIAL ONE (11:25)
[2025-01-30] MEDS ORDERED: PROPOFOL 10 MG/ML 20 ML VIAL IV ONE (11:25)
[2025-01-30] MEDS: ceFAZolin 2 GM in DEXTROSE 5% IN WATER 50 ML IVPB PRN (11:28)
[2025-01-30] MEDS: LIDOCAINE 1%-EPI 1:100,000 20 ML VIAL SQ ONE ×2 (11:45)
--- NOTE | 2025-01-30 11:55 | P.ANPRN ---
Procedure Note - Anesthesia - Nerve Block Performed Bilateral Erector Spinae Single Time Out Performed: Yes (1109) Date of Procedure: 01/30/25 Procedure Start Time: 11:10 Procedure Stop Time: 11:15 Location of Patient: PreOp Indication: Acute Post-Operative Pain, Requested by Surgeon Specifically requested for management of pain by : Сергей Mtz Sedation Type: Sedate with meaningful contact maintained Preparation: Sterile Prep Catheter: None Needle Types: Pajunk Needle Gauge: 21 Ultrasound used to visualize needle placement: Yes Ultrasound used to observe medication spread: Yes Injectate: 0.5% Ropivacaine (see comment for volume) (15cc+10cc nacl [id number] each side) Blood Aspirated: No Pain Paresthesia on Injection Noted: No Resistance on Injection: Normal Image Stored and Saved: Yes Events: Uneventful and Well Tolerated
--- NOTE | 2025-01-30 12:27 | P.OP ---
Date of Procedure: 01/30/25 Preoperative Diagnosis: Umbilical hernia Postoperative Diagnosis: Umbilical hernia, measuring 2 x 2 cm Procedure(s) Performed: Robotic umbilical hernia repair with mesh placement Anesthesia: LEISA Surgeon: Сергей Mtz Pathology: none sent Condition: stable Disposition: same day Indications for Procedure: 29-year-old female with enlarging umbilical hernia presented to the surgery clinic with this complaint. Plan is for robotic umbilical hernia repair with mesh placement. Risks, benefits and alternatives were provided to the patient. All questions answered. Operative Findings: 2 x 2 cm umbilical hernia Description of Procedure: The patient was brought to the operating room and placed in supine position. General anesthesia with endotracheal intubation was performed as per anesthesia team. Chlorhexidine was used to prep the skin followed by application of sterile drapes and a timeout was performed to verify correct patient and correct procedure. Patient was confirmed to receive perioperative IV antibiotics, bilateral SCDs and 5000 units of subcutaneous heparin for VTE prophylaxis. A 5 mm skin incision was made along the left mid axillary line at Tinoco's point and the abdomen was entered under direct visualization using a Visiport. Pneumoperitoneum was achieved. The umbilical hernia was clearly visualized. The hernia defect measured 2 x 2 cm. An additional 8 mm trocar was placed in the left lower abdomen and an 8 mm trocar was placed in the left mid abdomen. The initial 5 mm trocar was upsized to an 8 mm trocar. The [employer] Joanie robot was then docked. The 30 degree robotic camera was used. Robotic instruments were i nserted. The hernia defect contained preperitoneal fat which was reduced using gentle traction and countertraction method. The falciform ligament was divided using monopolar scissors close to the anterior abdominal wall to create a landing zone for the mesh. A ventralight circular mesh was placed and introduced into the abdominal cavity. The mesh measured 11.4 cm in diameter. The hernia defect was then closed primarily with running sutures using 1-0 strata fix by taking 1 cm bite on the fascia on either side of the defect. A Sagar Howell device was inserted through the middle of the hernia defect and the stay suture on the mesh was grasped to elevate the mesh against the anterior abdominal wall. The mesh was then circumferentially sutured to the peritoneum of the anterior abdominal wall using 2-0 V-Loc without any folds or kinks. The robot was then undocked. Laparoscopic camera was inserted and all trocar sites were examined. No evidence of bleeding. The pneumoperitoneum was then evacuated and all skin incisions were closed using 4-0 Monocryl followed by Dermabond skin glue. Sponge and instrument and needle count were correct x 2. Abdominal binder was applied. The patient was extubated and taken to postanesthesia care unit in stable condition.
[2025-01-30] MEDS: HYDROmorphone 0.5 MG/0.5 ML SYRINGE IVP PRN (12:54)
[2025-01-30] MEDS: MEPERIDINE 25 MG/ML SYRINGE IVP STA (13:24)
[2025-01-30] MEDS: LACTATED RINGERS 1,000 ML IV ONE (13:41)
[2025-01-30] MEDS ORDERED: HYDROcodone/APAP 7.5-325MG 1 EACH TAB PO STA (13:57)
[2025-01-30] MEDS: KETOROLAC 15 MG/ML 1 ML VIAL IVP STA (14:07)
[2025-01-30 15:21] VITALS: BP 110/75; PULSE 103; RESP 17
== END 2025-01-30 15:44 | disposition home or self-care (01) ==
LOC: OR 10:07
PROVIDERS: ATTEND Surgery
DX: K42.9 Umbilical hernia without obstruction or gangrene (principal); G89.18 Other acute postprocedural pain
CPT/HCPCS: 49591; 64468; S2900; 81025

== ENCOUNTER → 2025-04-16 | Outpatient (CLI) | payer OTHER ==
--- NOTE | 2025-04-16 10:11 | US ---
EXAMINATION TYPE: US abdomen complete DATE OF EXAM: 04/16/2025 COMPARISON: CT 2021 CLINICAL INDICATION: Female, 30 years old with history of R10.11 RUQ PAIN R10.31 RLQ PAIN; Pain x 2 m onths. Hx of hernia repair. TECHNIQUE: Grayscale and color Doppler imaging of the abdomen was performed. FINDINGS: EXAM MEASUREMENTS: Liver Length: 15.4 cm Gallbladder Wall: 0.23 cm CBD: 0.20 cm, color Doppler imaging was utilized to isolate the common bile duct for measurement. 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 Pancreas: Not well seen. Portions seen appear wnl Liver: Appears slightly coarse in echotexture. Gallbladder: Appears anechoic Evidence for sonographic Bautista's sign: No CBD:Appears wnl Spleen: Appears wnl Right Kidney: wnl, No hydronephrosis, calculi or masses seen Left Kidney: Hypoechoic area seen inferior pole: 1.6 x 1.5 x 1.2 cm. Upper IVC: Appears wnl Abd Aorta: Appears wnl Visualized portions of the pancreas are within normal limits. The liver demonstrates slightly coarsen ed echotexture and increased echogenicity. No focal lesion identified. Gallbladder demonstrates no wa ll thickening, surrounding fluid or gallstones. Negative sonographic Bautista sign. The common bile theresa t and spleen appear within normal limits. No hydronephrosis or shadowing renal calculi identified. No right renal masses. There is a questionable hypoechoic lesion seen within inferior pole of the left kidney measuring 1.6 cm. The visualized upper IVC and abdominal aorta appear within normal limits. IMPRESSION: 1. No ultrasound evidence for acute process. 2. Questionable left renal inferior pole 1.6 cm lesion. Recommend further evaluation with MR abdomen with IV contrast (renal mass protocol). 3. Mild hepatic steatosis suggested. [facility], , 04/16/2025 10:09 AM
== END | disposition home or self-care (01) ==
LOC: RADUSWWP 09:17
PROVIDERS: ATTEND Family Medicine
DX: R10.11 Right upper quadrant pain (principal)
CPT/HCPCS: 76700